=== PATIENT | male | born 1950 | race Caucasian/White ===

== ENCOUNTER 2018-10-12 13:50 | Emergency (ER) | payer OTHER ==
[2018-10-12 15:32] LABS: ADD MAN DIFF? NO
[2018-10-12 15:35] LABS: BASOPHILS % 0.4 % (0.0-2.0); EOSINOPHILS # 0.1 10^3/ul (0.0-0.5); EOSINOPHILS % 0.6 % (0.0-7.0); HEMATOCRIT 39.1 % (42.0-52.0); HEMOGLOBIN 12.9 g/dl (14.0-18.0); LYMPHOCYTES # 1.9 10^3/ul (0.8-2.9); LYMPHOCYTES % 16.5 % (15.0-51.0); MEAN CORPUSCULAR HEMOGLOBIN 28.6 pg (29.0-33.0); MEAN CORPUSCULAR VOLUME 86.7 fl (82.0-101.0); MONOCYTES % 8.4 % (0.0-11.0); NEUTROPHIL # 8.4 10^3/ul (1.6-7.5); NEUTROPHILS % 73.6 % (39.0-77.0); PLATELET COUNT 215 10^3/UL (140-415); RED BLOOD COUNT 4.51 10^6/ul (4.70-6.10); RED CELL DISTRIBUTION WIDTH 13.9 % (11.5-14.5)
[2018-10-12 15:35] LABS: WHITE BLOOD COUNT 11.4 10^3/ul (4.8-10.8)
[2018-10-12 15:52] LABS: ANION GAP 13 (5-13); BLOOD UREA NITROGEN 15 mg/dl (7-20); CALCIUM 9.6 mg/dl (8.4-10.2); CARBON DIOXIDE 27 mmol/L (21-31); CHLORIDE 97 mmol/L (97-110); CREATININE 0.74 mg/dl (0.61-1.24); Estimated GFR > 60 mL/min (>60); GLUCOSE 227 mg/dl (70-220); POTASSIUM 4.5 mmol/L (3.5-5.1); SODIUM 137 mmol/L (135-144)
[2018-10-12 16:03] LABS: TROPONIN-I 0.035 ng/ml (0.000-0.120)
[2018-10-12 17:56] LABS: B-TYPE NATRIURETIC PEPTIDE 1760 PG/ML (0-125)
[2018-10-12 19:38] LABS: TROPONIN-I 0.035 ng/ml (0.000-0.120)
[2018-10-12] MEDS: FUROSEMIDE 40 MG INJ IV (20:12)
== END 2018-10-12 20:28 | disposition home or self-care (01) ==
LOC: E/R 13:50
DX: I11.0 Hypertensive heart disease with heart failure (principal); I50.9 Heart failure, unspecified; J81.0 Acute pulmonary edema; E11.65 Type 2 diabetes mellitus with hyperglycemia; D72.829 Elevated white blood cell count, unspecified; R79.89 Other specified abnormal findings of blood chemistry; F17.210 Nicotine dependence, cigarettes, uncomplicated; Z79.4 Long term (current) use of insulin
CPT/HCPCS: 36415; 71045; 80048; 83880; 84484; 85025; 93005; 96374; 99285-25

== ENCOUNTER 2019-01-20 08:00 | Day surgery (SDC) | payer OTHER ==
[2019-01-20 09:05] LABS: ADD MAN DIFF? NO
[2019-01-20 09:09] LABS: WHITE BLOOD COUNT 8.5 10^3/ul (4.8-10.8)
[2019-01-20 09:09] LABS: BASOPHILS % 0.4 % (0.0-2.0); EOSINOPHILS # 0.2 10^3/ul (0.0-0.5); HEMATOCRIT 41.6 % (42.0-52.0); LYMPHOCYTES # 2.4 10^3/ul (0.8-2.9); LYMPHOCYTES % 28.1 % (15.0-51.0); MEAN CORPUSCULAR HEMOGLOBIN 24.7 pg (29.0-33.0); MEAN CORPUSCULAR HGB CONC 31.3 g/dl (32.0-37.0); MEAN CORPUSCULAR VOLUME 78.9 fl (82.0-101.0); MONOCYTE # 0.7 10^3/ul (0.3-0.9); MONOCYTES % 7.7 % (0.0-11.0); NEUTROPHIL # 5.2 10^3/ul (1.6-7.5); NEUTROPHILS % 61.4 % (39.0-77.0); PLATELET COUNT 196 10^3/UL (140-415); RED BLOOD COUNT 5.27 10^6/ul (4.70-6.10); RED CELL DISTRIBUTION WIDTH 15.5 % (11.5-14.5)
[2019-01-20 09:29] LABS: ANION GAP 12 (5-13); BLOOD UREA NITROGEN 17 mg/dl (7-20); CALCIUM 9.6 mg/dl (8.4-10.2); CARBON DIOXIDE 27 mmol/L (21-31); CHLORIDE 103 mmol/L (97-110); CREATININE 0.84 mg/dl (0.61-1.24); Estimated GFR > 60 mL/min (>60); GLUCOSE 174 mg/dl (70-220); POTASSIUM 3.5 mmol/L (3.5-5.1); SODIUM 142 mmol/L (135-144)
[2019-01-20] MEDS ORDERED: FENTAnyl 50 MCG/ML VIAL (09:36)
[2019-01-20] MEDS ORDERED: MIDAZOLAM 1 MG/ML 2 ML INJ (09:36)
[2019-01-20] MEDS ORDERED: PROPOFOL 20 ML (09:36)
[2019-01-20 09:37] LABS: INR 1.34; PROTIME 16.7 Sec (11.9-14.9); PT RATIO 1.3
[2019-01-20 09:38] LABS: PARTIAL THROMBOPLASTIN TIME 34.9 Sec (23.0-35.0)
== END 2019-01-20 11:30 | disposition home or self-care (01) ==
LOC: CCL 08:00 → SDS 08:00 → CCL 11:30
DX: I48.91 Unspecified atrial fibrillation (principal); I11.0 Hypertensive heart disease with heart failure; I50.9 Heart failure, unspecified; I42.9 Cardiomyopathy, unspecified; Z79.84 Long term (current) use of oral hypoglycemic drugs
CPT/HCPCS: 80048; 82962; 85025; 85610; 85730; 92960; 93005